=== PATIENT | female | born 1960 | race Caucasian/White ===

== ENCOUNTER 2024-01-21 13:33 | Inpatient (IN) | payer MEDICARE, BC ==
[~2024-01-21] VITALS: Ht 167.6 cm; Wt 64.0 kg
[~2024-01-21 13:33] MED LIST: ALPR0.255 PO; BUPR75TA8 PO; CLON0.5T23 PO; FENT1PAT TD; HYDR1TAB4 PO; LEVO75TA PO; PANT20TA2 PO; QUET300T2 PO; TOPI100T38 PO
[2024-01-22] VITALS: BP 131/81; TEMP 98.8; O2SAT 95
[2024-01-22] MEDS ORDERED: MAGNESIUM HYDROXIDE 30 ML UDC PO PRN
[2024-01-22] MEDS ORDERED: Z GUARD REMEDY 4 OZ OINT TP PRN
[2024-01-22] MEDS ORDERED: ACETAMINOPHEN 325 MG TABLET PO PRN
[2024-01-22] MEDS: ENOXAPARIN SODIUM 40 MG/0.4 ML DISP.SYRIN SQ SCH (00:43)
[2024-01-22] MEDS: ONDANSETRON HCL/PF 4 MG/2 ML VIAL IVP PRN (02:29)
[2024-01-22 04:00] VITALS: BP 124/71; TEMP 98.2; O2SAT 99
[2024-01-22] MEDS ORDERED: PANTOPRAZOLE 40 MG TABLET.DR PO SCH (07:30)
[2024-01-22 07:49] LABS: BASOPHILS # (AUTO) 0.1 K/uL (0.0-0.2); BASOPHILS % (AUTO) 0.6 % (0.0-2.0); EOSINOPHILS % (AUTO) 0.3 % (0.0-6.0); HEMATOCRIT 37 % (33-45); HEMOGLOBIN 12.3 g/dL (11.5-14.8); LYMPHOCYTES # (AUTO) 1.3 K/uL (0.8-4.8); LYMPHOCYTES % (AUTO) 10.6 % (20.0-44.0); MEAN CORPUSCULAR HEMOGLOBIN 33 PG (26.0-33.0); MEAN CORPUSCULAR HGB CONC 33 g/dl (31.0-36.0); MEAN CORPUSCULAR VOLUME 100 fL (82-100); MONOCYTES # (AUTO) 0.5 K/uL (0.1-1.30); MONOCYTES % (AUTO) 4.1 % (2.0-12.0); NEUTROPHILS # (AUTO) 10.4 K/uL (1.8-8.9); NEUTROPHILS % (AUTO) 84.4 % (43.0-81.0); PLATELET COUNT (AUTO) 237 K/uL (150-450); RED BLOOD CELL COUNT(AUTO) 3.73 MIL/uL (4.0-5.2); RED CELL DISTRIBUTION WIDTH 13.3 % (11.5-15.0); WHITE BLOOD COUNT (AUTO) 12.3 K/uL (4.3-11.0)
[2024-01-22 08:00] VITALS: BP 131/89; TEMP 98.4; O2SAT 96
[2024-01-22 08:09] LABS: ALBUMIN 3.3 g/dL (3.4-5.0); BILIRUBIN,DIRECT 0.1 mg/dL (0.0-0.2); BILIRUBIN,TOTAL 0.4 mg/dL (0.2-1.0); CREATININE 1.4 mg/dL (0.6-1.3); MAGNESIUM 1.9 mg/dL (1.8-2.4); PHOSPHORUS 2.9 mg/dL (2.5-4.9); POTASSIUM 3.3 mmol/L (3.5-5.1); TOTAL PROTEIN, SERUM 6.3 g/dL (6.4-8.2)
[2024-01-22 08:18] LABS: THYROID STIMULATING HORMONE 2.65 uIU/mL (0.358-3.74)
[2024-01-22] MEDS: CLONAZEPAM ODT/TDIS 0.5 MG TAB.RAPDIS SL SCH (09:00)
[2024-01-22] MEDS ORDERED: FENTANYL TD PATCH (50 MCG/HR) 50 MCG/HR PATCH.TD72 TD SCH (09:00)
[2024-01-22] MEDS: clonazePAM 0.5 MG TABLET PO ONE (09:33)
[2024-01-22] MEDS: LEVOTHYROXINE SODIUM 75 MCG TABLET PO SCH (09:33)
[2024-01-22] MEDS: TOPIRAMATE 100 MG TABLET PO SCH (09:33)
[2024-01-22] MEDS: CEFEPIME 2 GM in IV D5W 100 ML IV SCH (09:34)
[2024-01-22] MEDS: NICOTINE PATCH (21MG) 21 MG PATCH.TD24 TD SCH (09:34)
[2024-01-22] MEDS ORDERED: LEVO112T7 PO (09:45)
[2024-01-22] MEDS ORDERED: OXYC1TAB12 PO (09:45)
[2024-01-22] MEDS ORDERED: ALBU8.5H8 IH (09:45)
[2024-01-22] MEDS ORDERED: ONDA4TAB11 PO (09:45)
[2024-01-22] MEDS ORDERED: LINA290C PO (09:45)
[2024-01-22] MEDS ORDERED: SCOP1PAT11 TP (09:45)
[2024-01-22] MEDS ORDERED: [UNRECOGNIZED DRUG - CODE] PO (09:45)
[2024-01-22] MEDS ORDERED: CLON1TAB12 PO (09:45)
[2024-01-22] MEDS ORDERED: VORT20TA PO (09:45)
[2024-01-22] MEDS ORDERED: MELO-107 PO (09:45)
[2024-01-22] MEDS: LINEZOLID RTU BAG 600 MG in PREMIX 1 EA IV SCH (11:06)
[2024-01-22] MEDS: POTASSIUM CHLORIDE 20 MEQ POWDER PACKET PO SCH (11:21)
[2024-01-22] MEDS: buPROPion 75 MG TABLET PO SCH (11:21)
[2024-01-22] MEDS ORDERED: POTASSIUM CHLORIDE 20 MEQ TAB.PRT.SR PO SCH (11:30)
[2024-01-22 12:00] VITALS: BP 110/80; TEMP 98.2; O2SAT 96
[2024-01-22] MEDS: PANTOPRAZOLE 40 MG TABLET.DR PO SCH (12:04)
[2024-01-22 16:00] VITALS: BP 148/76; TEMP 98.6; O2SAT 96
[2024-01-22 20:00] VITALS: BP 115/97; TEMP 98.6; O2SAT 96
[2024-01-22] MEDS: QUETIAPINE FUMARATE 100 MG TABLET PO SCH (21:34)
[2024-01-23] VITALS: BP 120/81; TEMP 98.8; O2SAT 96
[2024-01-23 04:00] VITALS: BP 146/76; TEMP 99.3; O2SAT 96
[2024-01-23 08:00] VITALS: BP_SYST 120; BP_SYST 143; BP_DIAS 67; BP_DIAS 76; TEMP 97.1; TEMP 98.4; O2SAT 100; O2SAT 95
[2024-01-23] MEDS: PANTOPRAZOLE 40 MG TABLET.DR PO SCH (08:18)
[2024-01-23] MEDS: HYDROCODONE/APAP 5/325MG TABLET PO PRN (11:11)
[2024-01-23 12:00] VITALS: BP 135/83; TEMP 95; O2SAT 97
[2024-01-23 12:50] LABS: BASOPHILS % (AUTO) 0.3 % (0.0-2.0); EOSINOPHILS # (AUTO) 0.1 K/uL (0.0-0.7); EOSINOPHILS % (AUTO) 0.4 % (0.0-6.0); HEMATOCRIT 39 % (33-45); LYMPHOCYTES # (AUTO) 1.4 K/uL (0.8-4.8); LYMPHOCYTES % (AUTO) 8.7 % (20.0-44.0); MEAN CORPUSCULAR HEMOGLOBIN 33 PG (26.0-33.0); MEAN CORPUSCULAR HGB CONC 34 g/dl (31.0-36.0); MEAN CORPUSCULAR VOLUME 99 fL (82-100); MONOCYTES # (AUTO) 1.3 K/uL (0.1-1.30); MONOCYTES % (AUTO) 7.9 % (2.0-12.0); NEUTROPHILS # (AUTO) 13.7 K/uL (1.8-8.9); NEUTROPHILS % (AUTO) 82.7 % (43.0-81.0); PLATELET COUNT (AUTO) 198 K/uL (150-450); RED BLOOD CELL COUNT(AUTO) 3.91 MIL/uL (4.0-5.2); RED CELL DISTRIBUTION WIDTH 13.3 % (11.5-15.0); WHITE BLOOD COUNT (AUTO) 16.5 K/uL (4.3-11.0)
[2024-01-23 13:08] LABS: CALCIUM, SERUM 8.9 mg/dL (8.5-10.1); CREATININE 1.2 mg/dL (0.6-1.3); POTASSIUM 3.2 mmol/L (3.5-5.1)
[2024-01-23] MEDS: ENSURE ENLIVE 237 ML LIQUID (VANILLA) PO SCH (13:55)
[2024-01-23 16:00] VITALS: BP 132/79; TEMP 99.5; O2SAT 97
[2024-01-23 20:00] VITALS: BP 145/83; TEMP 99.1; O2SAT 95
[2024-01-24] VITALS (7 sets, daily range): BP systolic 105–147; BP diastolic 60–90; TEMP 98.4–99.5; O2SAT 95–99
[2024-01-24 07:54] LABS: BASOPHILS # (AUTO) 0.1 K/uL (0.0-0.2); BASOPHILS % (AUTO) 0.5 % (0.0-2.0); EOSINOPHILS # (AUTO) 0.2 K/uL (0.0-0.7); HEMATOCRIT 37 % (33-45); HEMOGLOBIN 12.3 g/dL (11.5-14.8); LYMPHOCYTES # (AUTO) 1.7 K/uL (0.8-4.8); LYMPHOCYTES % (AUTO) 15.1 % (20.0-44.0); MEAN CORPUSCULAR HEMOGLOBIN 34 PG (26.0-33.0); MEAN CORPUSCULAR HGB CONC 34 g/dl (31.0-36.0); MEAN CORPUSCULAR VOLUME 100 fL (82-100); MONOCYTES # (AUTO) 0.8 K/uL (0.1-1.30); MONOCYTES % (AUTO) 7.3 % (2.0-12.0); NEUTROPHILS # (AUTO) 8.5 K/uL (1.8-8.9); NEUTROPHILS % (AUTO) 75.1 % (43.0-81.0); PLATELET COUNT (AUTO) 168 K/uL (150-450); RED BLOOD CELL COUNT(AUTO) 3.66 MIL/uL (4.0-5.2); RED CELL DISTRIBUTION WIDTH 13.1 % (11.5-15.0); WHITE BLOOD COUNT (AUTO) 11.3 K/uL (4.3-11.0)
[2024-01-24 08:14] LABS: CALCIUM, SERUM 8.4 mg/dL (8.5-10.1); CREATININE 1.1 mg/dL (0.6-1.3); MAGNESIUM 1.8 mg/dL (1.8-2.4); PHOSPHORUS 2.9 mg/dL (2.5-4.9); POTASSIUM 2.9 mmol/L (3.5-5.1)
[2024-01-24] MEDS: POTASSIUM CHLORIDE 20 MEQ TAB.PRT.SR PO SCH (09:24)
[2024-01-24 14:53] LABS: CALCIUM, SERUM 9.4 mg/dL (8.5-10.1); CREATININE 1.4 mg/dL (0.6-1.3); POTASSIUM 3.5 mmol/L (3.5-5.1)
[2024-01-24] MEDS: ALBUTEROL FS 2.5 MG/3 ML VIAL.NEB NEB PRN (20:37)
[2024-01-25] VITALS (10 sets, daily range): BP systolic 121–141; BP diastolic 68–81; TEMP 98.5–99.7; O2SAT 95–100
[2024-01-25 07:50] LABS: CALCIUM, SERUM 8.6 mg/dL (8.5-10.1); CREATININE 1.2 mg/dL (0.6-1.3); POTASSIUM 3.7 mmol/L (3.5-5.1)
[2024-01-25] MEDS: ALPRAZOLAM 0.25 MG TABLET PO PRN (13:49)
[2024-01-26] VITALS: BP 131/76; TEMP 98.4; O2SAT 97
[2024-01-26 04:00] VITALS: BP 138/69; TEMP 98.6; O2SAT 96
[2024-01-26 08:00] VITALS: BP 147/77; TEMP 98.6; O2SAT 96
[2024-01-26] MEDS: LEVOTHYROXINE SODIUM 112 MCG TABLET PO SCH (08:31)
[2024-01-26 08:34] LABS: BASOPHILS # (AUTO) 0.1 K/uL (0.0-0.2); BASOPHILS % (AUTO) 0.8 % (0.0-2.0); EOSINOPHILS # (AUTO) 0.2 K/uL (0.0-0.7); EOSINOPHILS % (AUTO) 2.4 % (0.0-6.0); HEMATOCRIT 36 % (33-45); HEMOGLOBIN 12.3 g/dL (11.5-14.8); LYMPHOCYTES # (AUTO) 1.5 K/uL (0.8-4.8); MEAN CORPUSCULAR HEMOGLOBIN 34 PG (26.0-33.0); MEAN CORPUSCULAR HGB CONC 34 g/dl (31.0-36.0); MEAN CORPUSCULAR VOLUME 100 fL (82-100); MONOCYTES # (AUTO) 0.6 K/uL (0.1-1.30); MONOCYTES % (AUTO) 6.7 % (2.0-12.0); NEUTROPHILS # (AUTO) 6.9 K/uL (1.8-8.9); NEUTROPHILS % (AUTO) 74.1 % (43.0-81.0); PLATELET COUNT (AUTO) 160 K/uL (150-450); RED BLOOD CELL COUNT(AUTO) 3.64 MIL/uL (4.0-5.2); RED CELL DISTRIBUTION WIDTH 13.6 % (11.5-15.0); WHITE BLOOD COUNT (AUTO) 9.3 K/uL (4.3-11.0)
[2024-01-26 09:05] LABS: CALCIUM, SERUM 8.8 mg/dL (8.5-10.1); CREATININE 1.2 mg/dL (0.6-1.3); MAGNESIUM 1.7 mg/dL (1.8-2.4); PHOSPHORUS 2.7 mg/dL (2.5-4.9); POTASSIUM 3.2 mmol/L (3.5-5.1)
[2024-01-26] MEDS: MAG HYDROX/AL HYDROX/SIMETH 30 ML UDC PO PRN (14:13)
[2024-01-26 16:00] VITALS: BP 131/56; TEMP 96; O2SAT 96
[2024-01-26] MEDS: ZOLPIDEM TARTRATE 5 MG TABLET PO PRN (23:51)
[2024-01-27] VITALS: BP 133/52; TEMP 97.7; O2SAT 96
[2024-01-27 08:00] VITALS: BP 151/74; TEMP 98.6; O2SAT 96
[2024-01-27] MEDS ORDERED: CEFTRIAXONE 2 G in IV D5W 100 ML IV SCH (11:00)
[2024-01-27] MEDS: KETOROLAC TROMETHAMINE 15 MG/ML VIAL IV PRN (14:26)
[2024-01-27 16:00] VITALS: BP 143/75; TEMP 99.1; O2SAT 96
[2024-01-27 20:00] VITALS: BP 136/87; TEMP 98.8; O2SAT 95
[2024-01-27] MEDS: CEFTRIAXONE 2 G in IV D5W 100 ML IV SCH (20:51)
[2024-01-28 04:00] VITALS: BP 137/84; TEMP 98.6; O2SAT 95
[2024-01-28 07:55] LABS: BASOPHILS # (AUTO) 0.1 K/uL (0.0-0.2); BASOPHILS % (AUTO) 0.5 % (0.0-2.0); EOSINOPHILS # (AUTO) 0.2 K/uL (0.0-0.7); HEMATOCRIT 35 % (33-45); HEMOGLOBIN 12.1 g/dL (11.5-14.8); LYMPHOCYTES # (AUTO) 1.8 K/uL (0.8-4.8); LYMPHOCYTES % (AUTO) 17.4 % (20.0-44.0); MEAN CORPUSCULAR HEMOGLOBIN 34 PG (26.0-33.0); MEAN CORPUSCULAR HGB CONC 34 g/dl (31.0-36.0); MEAN CORPUSCULAR VOLUME 99 fL (82-100); MONOCYTES # (AUTO) 0.5 K/uL (0.1-1.30); MONOCYTES % (AUTO) 4.7 % (2.0-12.0); NEUTROPHILS # (AUTO) 7.8 K/uL (1.8-8.9); NEUTROPHILS % (AUTO) 75.4 % (43.0-81.0); PLATELET COUNT (AUTO) 136 K/uL (150-450); RED BLOOD CELL COUNT(AUTO) 3.56 MIL/uL (4.0-5.2); RED CELL DISTRIBUTION WIDTH 13.4 % (11.5-15.0); WHITE BLOOD COUNT (AUTO) 10.4 K/uL (4.3-11.0)
[2024-01-28 08:25] LABS: CALCIUM, SERUM 8.4 mg/dL (8.5-10.1); CREATININE 1.2 mg/dL (0.6-1.3); MAGNESIUM 1.9 mg/dL (1.8-2.4); PHOSPHORUS 2.6 mg/dL (2.5-4.9); POTASSIUM 3.3 mmol/L (3.5-5.1)
[2024-01-28 10:05] VITALS: O2SAT 95
[2024-01-28 10:21] VITALS: O2SAT 95
[2024-01-28] MEDS: POTASSIUM CHLORIDE 20 MEQ TAB.PRT.SR PO SCH (11:00)
[2024-01-28 16:00] VITALS: BP 135/82; TEMP 99.1; O2SAT 93
[2024-01-29] VITALS: BP 120/74; TEMP 98.6; O2SAT 97
[2024-01-29 04:38] VITALS: O2SAT 97
[2024-01-29] MEDS: KETOROLAC TROMETHAMINE INJ 30 MG/ML VIAL IV PRN (07:45)
[2024-01-29 07:48] LABS: BASOPHILS # (AUTO) 0.1 K/uL (0.0-0.2); BASOPHILS % (AUTO) 0.8 % (0.0-2.0); EOSINOPHILS # (AUTO) 0.1 K/uL (0.0-0.7); EOSINOPHILS % (AUTO) 1.5 % (0.0-6.0); HEMATOCRIT 33 % (33-45); HEMOGLOBIN 11.3 g/dL (11.5-14.8); LYMPHOCYTES # (AUTO) 1.6 K/uL (0.8-4.8); LYMPHOCYTES % (AUTO) 18.4 % (20.0-44.0); MEAN CORPUSCULAR HEMOGLOBIN 34 PG (26.0-33.0); MEAN CORPUSCULAR HGB CONC 34 g/dl (31.0-36.0); MEAN CORPUSCULAR VOLUME 100 fL (82-100); MONOCYTES # (AUTO) 0.5 K/uL (0.1-1.30); MONOCYTES % (AUTO) 5.6 % (2.0-12.0); NEUTROPHILS # (AUTO) 6.2 K/uL (1.8-8.9); NEUTROPHILS % (AUTO) 73.7 % (43.0-81.0); PLATELET COUNT (AUTO) 125 K/uL (150-450); RED CELL DISTRIBUTION WIDTH 13.2 % (11.5-15.0); WHITE BLOOD COUNT (AUTO) 8.5 K/uL (4.3-11.0)
[2024-01-29 08:00] VITALS: BP 142/79; TEMP 98.4; O2SAT 95
[2024-01-29 08:21] LABS: CALCIUM, SERUM 8.7 mg/dL (8.5-10.1); CREATININE 1.1 mg/dL (0.6-1.3); MAGNESIUM 2.1 mg/dL (1.8-2.4); PHOSPHORUS 2.9 mg/dL (2.5-4.9); POTASSIUM 3.6 mmol/L (3.5-5.1)
[2024-01-29] MEDS: clonazePAM 1 MG TABLET PO PRN (14:48)
[2024-01-29 16:00] VITALS: BP 138/74; TEMP 99; O2SAT 100
[2024-01-30] VITALS: BP 138/74; TEMP 99.5; O2SAT 94
[2024-01-30 07:10] LABS: BASOPHILS # (AUTO) 0.1 K/uL (0.0-0.2); BASOPHILS % (AUTO) 0.6 % (0.0-2.0); EOSINOPHILS # (AUTO) 0.2 K/uL (0.0-0.7); EOSINOPHILS % (AUTO) 2.3 % (0.0-6.0); HEMATOCRIT 34 % (33-45); HEMOGLOBIN 11.4 g/dL (11.5-14.8); LYMPHOCYTES # (AUTO) 2.2 K/uL (0.8-4.8); LYMPHOCYTES % (AUTO) 23.4 % (20.0-44.0); MEAN CORPUSCULAR HEMOGLOBIN 33 PG (26.0-33.0); MEAN CORPUSCULAR HGB CONC 33 g/dl (31.0-36.0); MEAN CORPUSCULAR VOLUME 100 fL (82-100); MONOCYTES # (AUTO) 0.7 K/uL (0.1-1.30); MONOCYTES % (AUTO) 7.6 % (2.0-12.0); NEUTROPHILS # (AUTO) 6.3 K/uL (1.8-8.9); NEUTROPHILS % (AUTO) 66.1 % (43.0-81.0); PLATELET COUNT (AUTO) 132 K/uL (150-450); RED BLOOD CELL COUNT(AUTO) 3.42 MIL/uL (4.0-5.2); RED CELL DISTRIBUTION WIDTH 13.1 % (11.5-15.0); WHITE BLOOD COUNT (AUTO) 9.6 K/uL (4.3-11.0)
[2024-01-30 07:47] LABS: CALCIUM, SERUM 9.6 mg/dL (8.5-10.1); CREATININE 1.1 mg/dL (0.6-1.3); MAGNESIUM 2.1 mg/dL (1.8-2.4); PHOSPHORUS 3.4 mg/dL (2.5-4.9); POTASSIUM 3.6 mmol/L (3.5-5.1)
[2024-01-30 08:00] VITALS: BP 129/72; TEMP 98.4; O2SAT 93
[2024-01-30 08:20] VITALS: O2SAT 96
[2024-01-30] MEDS ORDERED: IOHEXOL-300 100 ML VIAL IV ONE (12:24)
[2024-01-30] MEDS ORDERED: IV NS 0.9% 250 ML IV ONE (12:24)
[2024-01-30] MEDS ORDERED: CT SWABBABLE VALVE TRANS SET 1 EA INFUS.SET MC ONE (12:25)
[2024-01-30 16:00] VITALS: BP 124/72; TEMP 98.4; O2SAT 92
[2024-01-31] VITALS: BP 123/78; TEMP 98.4; O2SAT 93
[2024-01-31 08:00] VITALS: BP 130/80; TEMP 98.6; O2SAT 98
[2024-01-31 09:33] LABS: BASOPHILS % (AUTO) 0.5 % (0.0-2.0); EOSINOPHILS # (AUTO) 0.3 K/uL (0.0-0.7); HEMATOCRIT 36 % (33-45); HEMOGLOBIN 12.2 g/dL (11.5-14.8); LYMPHOCYTES # (AUTO) 2.1 K/uL (0.8-4.8); LYMPHOCYTES % (AUTO) 24.5 % (20.0-44.0); MEAN CORPUSCULAR HEMOGLOBIN 34 PG (26.0-33.0); MEAN CORPUSCULAR HGB CONC 34 g/dl (31.0-36.0); MEAN CORPUSCULAR VOLUME 100 fL (82-100); MONOCYTES # (AUTO) 0.9 K/uL (0.1-1.30); MONOCYTES % (AUTO) 10.3 % (2.0-12.0); NEUTROPHILS # (AUTO) 5.3 K/uL (1.8-8.9); NEUTROPHILS % (AUTO) 61.7 % (43.0-81.0); PLATELET COUNT (AUTO) 142 K/uL (150-450); RED CELL DISTRIBUTION WIDTH 13.5 % (11.5-15.0); WHITE BLOOD COUNT (AUTO) 8.6 K/uL (4.3-11.0)
[2024-01-31 09:59] LABS: CALCIUM, SERUM 9.7 mg/dL (8.5-10.1); MAGNESIUM 1.9 mg/dL (1.8-2.4); PHOSPHORUS 2.8 mg/dL (2.5-4.9); POTASSIUM 3.6 mmol/L (3.5-5.1)
== END 2024-01-31 15:02 | disposition home or self-care (01) | DRG 206 ==
LOC: TELE1 21:48 → MEDSG1 01-26 10:31
PROVIDERS: ADMIT Nurse Practitioner Family; ATTEND Student in an Organized Health Care Education/Training Program
DX: J98.4 Other disorders of lung (principal); B49 Unspecified mycosis; E87.0 Hyperosmolality and hypernatremia; T17.890A Other foreign object in other parts of respiratory tract causing asphyxiation, initial encounter; N17.9 Acute kidney failure, unspecified; M48.56XA Collapsed vertebra, not elsewhere classified, lumbar region, initial encounter for fracture; E03.9 Hypothyroidism, unspecified; J44.9 Chronic obstructive pulmonary disease, unspecified; K29.70 Gastritis, unspecified, without bleeding; N18.9 Chronic kidney disease, unspecified; F41.9 Anxiety disorder, unspecified; G89.4 Chronic pain syndrome; F11.90 Opioid use, unspecified, uncomplicated; K58.9 Irritable bowel syndrome, unspecified; M19.90 Unspecified osteoarthritis, unspecified site; Z79.890 Hormone replacement therapy; Z79.899 Other long term (current) drug therapy; N80.9 Endometriosis, unspecified; Z88.0 Allergy status to penicillin; Z90.710 Acquired absence of both cervix and uterus; K29.80 Duodenitis without bleeding; E83.42 Hypomagnesemia; D72.829 Elevated white blood cell count, unspecified; F32.A Depression, unspecified; F17.200 Nicotine dependence, unspecified, uncomplicated; R91.8 Other nonspecific abnormal finding of lung field; Z78.9 Other specified health status; W44.F9XA Other object of natural or organic material, entering into or through a natural orifice, initial encounter; Y92.9 Unspecified place or not applicable; D14.31 Benign neoplasm of right bronchus and lung
CPT/HCPCS: 36415; 71045-TC; 71270-TC; 80048-TC; 80076-TC; 83735-TC; 84100-TC; 84443-TC; 85025-TC; 86480; 87086-TC; 87206-TC; 94799-TC; A4216; A4223; G0378; J0692; J0696; J1650; J1885; J2020; J2405; J7050; J7060; Q9967